=== PATIENT | male | born 1990 | race African-American/Black ===

== ENCOUNTER 2018-06-09 19:14 | Emergency (ER) | payer MEDICAID ==
[2018-06-09 19:19] VITALS: BP 110/82
--- NOTE | 2018-06-09 19:53 | EDPHY ---
H & P Time Seen by Provider: 06/09/18 19:27 HPI/ROS: CHIEF COMPLAINT: Depression and suicidal ideation HISTORY OF PRESENT ILLNESS: Patient is a 27-year-old male well known to this emergency room with history of anxiety and depression and chronic suicidal ideation. He reports persistent suicidal ideation without plan. States he does not want hurt himself and actually states that he does feel safe going home. When asked what he needs help with he states he needs a place to sleep and live and needs a good job. Denies any drug or alcohol use other than marijuana. Denies any hallucinations. REVIEW OF SYSTEMS: Constitutional: No fever, no chills. Eyes: No discharge. ENT: No sore throat. Cardiovascular: No chest pain, no palpitations. Respiratory: No cough, no shortness of breath. Gastrointestinal: No abdominal pain, no vomiting. Genitourinary: No hematuria. Musculoskeletal: No back pain. Skin: No rashes. Neurological: No headache. Past Medical/Surgical History: CHIEF COMPLAINT: [ ] HISTORY OF PRESENT ILLNESS: [ ] REVIEW OF SYSTEMS: Constitutional: No fever, no chills. Eyes: No discharge. ENT: No sore throat. Cardiovascular: No chest pain, no palpitations. Respiratory: No cough, no shortness of breath. Gastrointestinal: No abdominal pain, no vomiting. Genitourinary: No hematuria. Musculoskeletal: No back pain. Skin: No rashes. Neurological: No headache. Smoking Status: Current every day smoker Physical Exam: General Appearance: Alert and no distress. Eyes: Pupils equal and round no injection. Respiratory: Chest is nontender, lungs are clear to auscultation. Cardiac: regular rate and rhythm. Gastrointestinal: Abdomen is soft and nontender, no masses, bowel sounds normal. Musculoskeletal: Neck is supple and nontender. Extremities have full range of motion and are nontender. Skin: No rashes or lesions. Constitutional: Initial Vital Signs Temperature (C) 36.7 C 06/09/18 19:17 Heart Rate 114 H 06/09/18 19:17 Respiratory Rate 18 06/09/18 19:17 Blood Pressure 110/82 H 06/09/18 19:17 O2 Sat (%) 94 06/09/18 19:17 O2 Delivery Mode Room Air Allergies/Adverse Reactions: haloperidol [From Haldol] Allergy (Verified 09/06/18 19:17) risperidone Allergy (Verified 06/09/18 19:17) trazodone Allergy (Verified 06/09/18 19:17) ziprasidone [From Geodon] Allergy (Verified 06/09/18 19:17) Medical Decision Making ED Course/Re-evaluation: 27-year-old male here with chronic depression and suicidal ideation. He is not actively suicidal and has no plan. He was not placed on a hold. I offered him psychiatric evaluation and he would like to have this done. Before being medically cleared he eloped without having been evaluated by mental health. - Data Points Laboratory Results: Laboratory Results 06/09/18 20:10 06/09/18 20:10 06/09/18 06/09/18 06/09/18 20:10 20:10 20:10 WBC 6.00 10^3/uL 10^3/uL (3.80-9.50) RBC 5.37 10^6/uL 10^6/uL (4.40-6.38) Hgb 15.1 g/dL g/dL (13.7-17.5) Hct 44.5 % % (40.0-51.0) MCV 82.9 fL fL (81.5-99.8) MCH 28.1 pg pg (27.9-34.1) MCHC 33.9 g/dL g/dL (32.4-36.7) RDW 14.6 % % (11.5-15.2) Plt Count 269 10^3/uL 10^3/uL (150-400) MPV 10.1 fL fL (8.7-11.7) Neut % (Auto) 60.4 % % (39.3-74.2) Lymph % (Auto) 28.2 % % (15.0-45.0) [place] % (Auto) 9.7 % % (4.5-13.0) Eos % (Auto) 1.0 % % (0.6-7.6) Baso % (Auto) 0.5 % % (0.3-1.7) Nucleat RBC Rel Count 0.0 % % (0.0-0.2) Absolute Neuts (auto) 3.63 10^3/uL 10^3/uL (1.70-6.50) Absolute Lymphs (auto) 1.69 10^3/uL 10^3/uL (1.00-3.00) Absolute Monos (auto) 0.58 10^3/uL 10^3/uL (0.30-0.80) Absolute Eos (auto) 0.06 10^3/uL 10^3/uL (0.03-0.40) Absolute Basos (auto) 0.03 10^3/uL 10^3/uL (0.02-0.10) Absolute Nucleated RBC 0.00 10^3/uL 10^3/uL (0-0.01) Immature Gran % 0.2 % % (0.0-1.1) Immature Gran # 0.01 10^3/uL 10^3/uL (0.00-0.10) Sodium 140 mEq/L mEq/L (135-145) Potassium 4.1 mEq/L mEq/L (3.3-5.0) Chloride 104 mEq/L mEq/L (97-110) Carbon Dioxide 24 mEq/l mEq/l (22-31) Anion Gap 12 mEq/L mEq/L (8-16) BUN 12 mg/dL mg/dL (7-23) Creatinine 1.1 mg/dL mg/dL (0.7-1.3) Estimated GFR > 60 Glucose 116 mg/dL H mg/dL (70-100) Calcium 9.8 mg/dL mg/dL (8.5-10.4) Salicylates < 1.0 mg/dL L mg/dL (2.0-20.0) Urine Opiates Screen NEGATIVE (NEGATIVE) Acetaminophen < 10 mcg/mL L mcg/mL (10-30) Urine Barbiturates NEGATIVE (NEGATIVE) Ur Phencyclidine Scrn NEGATIVE (NEGATIVE) Ur Amphetamine Screen NEGATIVE (NEGATIVE) U Benzodiazepines Scrn NEGATIVE (NEGATIVE) Urine Cocaine Screen NEGATIVE (NEGATIVE) U Marijuana (THC) Screen NON-NEGATIVE H (NEGATIVE) Ethyl Alcohol < 10 mg/dL mg/dL (0-10) Departure - Departure Clinical Impression: Depression, Passive suicidal ideations Referrals: NONE *PRIMARY CARE P,. [Primary Care Provider] - As per Instructions
[2018-06-09 20:26] LABS: PLATELET COUNT 269 10^3/uL (150-400)
== END 2018-06-09 21:20 ==
LOC: EEVIPCON 19:14
DX: R45.851 Suicidal ideations (principal); F32.89 Other specified depressive episodes; F17.200 Nicotine dependence, unspecified, uncomplicated
CPT/HCPCS: 80305; G0480

== ENCOUNTER 2018-06-16 21:25 | Emergency (ER) | payer MEDICAID ==
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
[2018-06-16] MEDS ORDERED: NALOXONE HCL 0.4 MG/ML INJ IVP ONE (22:05)
[2018-06-16 22:36] LABS: PLATELET COUNT 247 10^3/uL (150-400)
[2018-06-17 00:18] VITALS: BP 126/71
== END 2018-06-17 07:56 | disposition left against medical advice (07) ==
DX: F32.9 Major depressive disorder, single episode, unspecified (principal); F41.9 Anxiety disorder, unspecified; Z87.891 Personal history of nicotine dependence
CPT/HCPCS: 96374; G0480; J2310

== ENCOUNTER 2018-06-21 20:10 | Emergency (ER) | payer OTHER, MEDICAID ==
[2018-06-21 20:15] VITALS: BP 117/80
--- NOTE | 2018-06-21 21:14 | EDPHY ---
H & P Time Seen by Provider: 06/21/18 20:17 HPI/ROS: HPI Depression, anxiety. 27-year-old male on foot. This patient is currently homeless. Our emergency department is very familiar with him. I have seen him twice myself recently. He has been on an M1 hold in the past. His last 2 visits he has left against medical advice. The last visit that I managed him he became violent with staff and left the emergency department. Prior to this he has left the emergency department before being evaluated by Behavioral Health after his blood it been drawn. He presents the emergency department on foot with complaint of depression and feeling anxious. He denies being suicidal. ROS: Constitutional: No fever, no chills. No weakness. Eyes: No discharge. No changes in vision. ENT: No sore throat. No nasal congestion or rhinorrhea. Respiratory: No cough. No shortness of breath. Cardiac: No chest pain, no palpitations. Gastrointestinal: No abdominal pain, no vomiting, no diarrhea. Genitourinary: No hematuria. No dysuria or increased frequency with urination. Musculoskeletal: No back pain. No neck pain. No myalgias or arthralgias. Skin: No rashes. Neurological: No headache. No focal weakness or altered sensation. Past medical history: Depression, anxiety. Social history: Denies smoking. No alcohol. Denies IV drugs and street drugs. Here by himself. Physical Exam: General Appearance: Alert, no distress. Very large man. This patient is responding to questions appropriately and in full sentences. This patient appears well-hydrated and well-nourished. Eyes: Pupils equal and round no pallor or injection. No lid edema, erythema or injection. Respiratory: There are no retractions, lungs are clear to auscultation with good air movement bilaterally. Cardiovascular: Regular rate and rhythm. No murmur. Gastrointestinal: Abdomen is soft and nontender, no masses, bowel sounds normal. No focal tenderness at McBurney's point. No Caraballo sign. Neurological: Motor sensory function is grossly intact. Cranial nerves are normal. Gait is normal. Skin: Warm and dry, no rashes. Musculoskeletal: Neck is supple and nontender. Extremities are symmetrical. All joints range without pain or impingement. Psychiatric: No agitation. No depression. Database: EKG: Imaging: Procedures: Emergency department course: Triage vital signs reviewed and are normal. The patient is not suicidal. He is a [facility] client. He does not meet criteria at this time for an M1 hold. I also do not feel he requires behavioral health evaluation at this time. He will be discharged. He has been instructed to follow-up with [facility] through their clinic tomorrow for re-evaluation. He is in agreement with this plan. Return to emergency department precautions were reviewed with him. All of his questions were answered. He was discharged from the emergency department in good condition. Differential Diagnosis: The differential diagnosis on this patient includes but is not limited to situational depression, anxiety. Acute psychosis, suicidal ideation unlikely. This represents a partial list of diagnoses considered. These considerations are based on history, physical exam, past history, reassessment and diagnostic testing. Smoking Status: Former smoker Constitutional: Initial Vital Signs Temperature (C) 37.0 C 06/21/18 20:13 Heart Rate 94 06/21/18 20:13 Respiratory Rate 16 06/21/18 20:13 Blood Pressure 117/80 06/21/18 20:13 O2 Sat (%) 94 06/21/18 20:13 O2 Delivery Mode Room Air Allergies/Adverse Reactions: haloperidol [From Haldol] Allergy (Verified 06/21/18 20:15) risperidone Allergy (Verified 06/21/18 20:15) trazodone Allergy (Verified 06/21/18 20:15) ziprasidone [From Geodon] Allergy (Verified 06/21/18 20:15) Home Medications: Medication Instructions Recorded NK [No Known Home Meds] 06/16/18 Departure - Departure Disposition: Home, Routine, Self-Care Clinical Impression: Depression, Anxiety Condition: Good Instructions: Depression (ED) Additional Instructions: Read and follow provided instructions. Follow-up with [facility] tomorrow at their clinic for re- evaluation. Take your medication as prescribed. Return to the emergency department for worsening symptoms or other serious concerns. Referrals: [facility] [Outside] - As per Instructions
== END 2018-06-21 21:32 | disposition home or self-care (01) ==
DX: F41.9 Anxiety disorder, unspecified (principal); F32.9 Major depressive disorder, single episode, unspecified; Z59.0 Homelessness

== ENCOUNTER 2018-06-22 07:25 | Emergency (ER) | payer MEDICAID ==
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
[2018-06-22 09:18] VITALS: BP 105/59
== END 2018-06-22 09:03 | disposition home or self-care (01) ==
LOC: CED 07:25
DX: F33.1 Major depressive disorder, recurrent, moderate (principal); F41.9 Anxiety disorder, unspecified; F17.200 Nicotine dependence, unspecified, uncomplicated; Z59.0 Homelessness

== ENCOUNTER 2018-06-22 23:26 | Emergency (ER) | payer MEDICAID ==
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
[2018-06-23 01:39] VITALS: BP 126/84
== END 2018-06-23 01:42 | disposition home or self-care (01) ==
LOC: CED 23:26
DX: F32.9 Major depressive disorder, single episode, unspecified (principal); Z59.0 Homelessness

== ENCOUNTER 2018-06-25 19:36 | Emergency (ER) | payer MEDICAID ==
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
== END 2018-06-25 19:46 | disposition home or self-care (01) ==
LOC: CED 19:36
DX: Z76.5 Malingerer [conscious simulation] (principal); Z59.0 Homelessness

== ENCOUNTER 2018-07-27 21:27 | Emergency (ER) | payer MEDICAID, OTHER ==
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
[2018-07-27 22:08] LABS: PLATELET COUNT 258 10^3/uL (150-400)
[2018-07-27 23:25] VITALS: BP 132/98
--- NOTE | 2018-07-28 08:32 | ASMTTLCEVL ---
TLC Evaluation - Basic Information Evaluation Start Date and 07/28/2018 06:20 AM Time Hospital Status Answers: M1 Hold 72-hr M1 Hold Start Date 07/27/2018 09:48 PM and Time Patient statement Notes: I dont like my life. Narrative Notes: Pt is a 27 yo, single, homeless, unemployed male with unknown past psychiatric diagnosis history, self-presented to [facility] ED last night initially on a voluntary basis. He reported feeling depressed about his life and having suicidal ideation. Pt was placed on M1 hold by ED provider which simply noted: Patient here with suicidal ideation. Depression. History Bipolar. Upon medical clearance, MH interview commenced the following morning. ED staff reported that pt had been on his cell phone at times throughout the night, otherwise was sleeping. Pt appeared in good physical condition. He voiced no physical complaints. It was noted that pt had tattoos on both of his eyelids. Pt reported he has been homeless for the past 10 years. He stated he took a bus from the [place], [place] area and arrived in [place] a couple of weeks ago ([facility] records show that pt has been seen in the ED s 6 times since 06/09/18). On 06/09/18, MH manager nc noted that pt presented to ED voluntarily and he stated he went to [facility] on 06/08/18 but said he was told they couldnt get him snf or help him. He then became uncooperative to the interview process, responding with I dont know or I dont remember. Pt left ED while manager nc was consulting with ED provider. On 06/17/18 ED visit, it was noted that pt was snf seeking, became threatening to 3 security staff, denied he was suicidal and demanded to leave. The M1 hold was vacated and pt was escorted off [facility] premises. On 06/21/18 ED visit, pt again presented on a voluntary basis with c/o depression and anxiety, no suicidality and was discharged. On 06/21/18 ED, same presentation. On 06/23/18 ED visit, pt c/o feeling depressed because he doesnt want to be on the streets anymore. Records noted pt reported being excluded from [facility] for violent behavior and that pt wanted the ED to find him a place to stay. On 06/25/18 ED visit, it was again noted pt was snf seeking. Pt reported having just been released from [facility] yesterday after a 5 day stay. Pt reported that what precipitated that admission with a suicide attempt. Asked pt how he attempted suicide and pt stated I cut my wrist. Asked pt to show where he had made the cuts and pt showed his left forearm where it was observed pt had a few barely detectable superficial jennings on his forearm. Pt was not fully cooperative in providing historical background information, especially when asked if he had any legal history pt stated none here, but a lot of times in [place] theyre prejudiced in [place]. Pt would not provide information on what he had been incarcerated several times for. Diagnosis History Notes: Pt reported feelings of depression and anxiety my whole life. Prior suicide attempts Notes: As noted above, pt reported one prior suicide attempt in which he made a few superficial jennings on his left forearm about 6 days ago. Prior hospitalizations Notes: [facility] for 5 days and was released yesterday with recommendations to follow up with [facility]. Additionally, on 06/17/18 ED visit, it was noted that pt was snf seeking, became threatening to 3 security staff, denied he was suicidal and demanded to leave. Treatment Responses Notes: Pt reported feeling that "they didn't help me and [facility] can't help me." History of violence Notes: Pt was not fully cooperative in providing background information, however, it was noted that on 06/23/18 ED visit that pt reported being excluded from [facility] for violent behavior and that pt wanted the ED to find him a place to stay. Therapist: None. Psychiatrist: None. Medications (name, dosage, route, freq uency) Notes: None. Allergies/Reaction Notes: Pt reported having allergy to Geodon and Haldol rash. Sleep Notes: WNL. Appetite Notes: WNL. Medical/Surgical history Notes: Noncontributory. Pt denied having any history of health issues or surgeries. Substance use history (frequency, intensity, his tory, duration) Notes: Pt reported he does not drink alcohol. He reported he first tried marijuana at age 12 and uses daily, 1-3 blunts daily, with last use being last night. He denied any other illicit substance use history. BAL was zero. UDS results positive for marijuana. Family composition Notes: Pt reported not knowing anything about his biological parents and was placed in foster care until age 16 when he ran away. Need for family Answers: No participation in patient's care Family psychiatric/substance abuse history Notes: Pt reported not knowing anything about his biological parents and was placed in foster care until age 16 when he ran away. Developmental history Notes: Pt grew up in the [place] area. Pt reported not knowing anything about his biological parents and was placed in foster care until age 16 when he ran away. He denied any past history of TBIs, LOC or concussions. Pt declined to provide any information regarding a history of childhood abuse. Abuse concerns Answers: None Marital status/children Notes: Pt is single, never , no dependents. Living situation Notes: Pt reported he has been homeless for the past 10 years. He reported that somebody in [place], [place] suggested he come to [place] to get help, so he arrived in [place] in early June via bus. He has a large black duffle back containing his belongings. Sexual history/orientation Notes: Not active. Heterosexual. Peer support/family strengths Notes: None identified. Pt is new to [facility] and homeless. Education level/history Notes: Pt reported he attended some classes at [employer]. He added that he rarely attended classes and had no specific area of study. 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 Pt is unemployed. Notes: None. Legal Notes: Pt was not fully cooperative in providing historical background information, especially when asked if he had any legal history pt stated none here, but a lot of times in [place] theyre prejudiced in [place]. Pt would not provide information on what he had been incarcerated several times for. Anabaptist/Spiritual Notes: Pt was not fully cooperative in providing historical background information, especially when asked if he had any legal history pt stated none here, but a lot of times in [place] theyre prejudiced in [place]. Pt would not provide information on what he had been incarcerated several times for. Leisure Notes: None identified. Collateral Notes: Prior [facility] records. Patient's strengths Answers: Athletic (Please select at least TWO strengths): Willingness TLC Evaluation - Mental Status Exam Appearance: Answers: Clean Eye Contact: Answers: Intermittent Staring Mood: Answers: Irritable Affect: Answers: Congruent w/ Mood Guarded Irritable Sad Behavior: Answers: Uncooperative Manipulative Menacing Passive Resistive to Care Speech: Answers: Relevant Logical Clear Coherent Selectively Mute Thought Process: Answers: Organized Oriented Alert Goal Oriented Intact Insight: Answers: Poor Judgement: Answers: Fair Depression Answers: Sad Mood Signs/Symptoms: Hallucinations: Answers: None Current Stage of Change Answers: Precontemplation Pt reported to have Answers: Yes suicidal/self-injuring ideation/behavior? Pt reported to be making Answers: No suicidal/self-injuring threats? Pt reported to have Answers: No aggression/assault ideation/behavior? Pt reported to be making Answers: No aggression/assault threats? Pt exhibits inability to Answers: No care for self/grave disability? Ideation/behavior is Answers: Yes chronic? Patient has a specific Answers: No plan? Pt has access to means to Answers: No execute the plan? Ideation involves Answers: No serious/lethal intent? Ideation has Answers: No delusional/hallucinatory content? History of Answers: Yes suicidal/self-injuring ideation, behavior, or threats? History of Answers: Yes aggressive/assaultive ideation, behavior, or threats? History of serious Answers: Yes physical harm to self/others while in treatment setting? [facility] Evaluation - Suicide/Homicide Risk Suicide Risk Factors: Answers: Cluster "B" D/O or Traits Financial Difficulties Flat Affect Inadequate Social Support Lack of Anabaptist Support Lack of Social Support Lack/Loss of Employment Legal Difficulties Single Unstable Living Situation Homicide/violence risk Answers: Antisocial Personality DO factors: Previous Hx of Violence Threats Towards Others Violence Towards Others Current Suicidal Answers: Yes Ideation? Current Suicidal Ideation Answers: No in the Past 48 Hours? Current Suicidal Ideation Answers: Yes in the Past Month? Current Suicidal Answers: No Ideation, Worst Ever? Suicide Internal Answers: Absence of Psychosis Protective Factors: Suicide External Answers: None Protective Factors: Ranking of patient's Answers: Low suicidal risk: Ranking of patient's Answers: Low homicidal risk: TLC Evaluation - Wrap-up BDI Total Score: 36 BDI Question #2 Score: 2 BDI Question #9 Score: 2 AXIS I Diagnosis (include DSM-V and ICD-10 codes), must also be entered in [employer], which is the source of truth. Notes: Malingering V65.2 (Z76.5) Cannabis Use Disorder, severe 304.30 (F12.20) Persistent Depressive Disorder (Dysthymia) 300.4 (F34.1) In consultation with [facility] ED physician, Mario Ludwig, Dr. MacDade concurred that pt does not appear to meet 27-65 criteria requiring psychiatric hospitalization as pt does not appear to be an imminent risk of harm to self/others/gravely disabled due to a mental illness condition. Dr. Ludwig provided verbal order read back vacating M1 hold at 0700 hrs. Pt was given local hotline information and [facility] brochure After an Attempt and encouraged to follow up with [facility]. Evaluation End Date and 07/28/2018 08:30 AM Time (HH:PATRICIA): Date Signed: 07/28/2018 08:32 AM Electronically Signed By:Jerome Mcbride
--- NOTE | 2018-07-28 08:33 | ASMTTCLDSP ---
TLC Discharge Disposition Disposition: Answers: Discharge If Answers: Yes DISCHARGED: Patient/family given suicide hotline info & [facility] brochure? Disposition Notes: Notes: In consultation with [facility] ED physician, Mario Ludwig, Dr. Ludwig concurred that pt does not appear to meet 27-65 criteria requiring psychiatric hospitalization as pt does not appear to be an imminent risk of harm to self/others/gravely disabled due to a mental illness condition. Dr. Ludwig provided verbal order read back vacating M1 hold at 0700 hrs. Pt was given local hotline information and [facility] brochure After an Attempt and encouraged to follow up with [facility]. Discharge Concerns/Recommendations: Notes: In consultation with [facility] ED physician, Mario Ludwig, Dr. Ludwig concurred that pt does not appear to meet 27-65 criteria requiring psychiatric hospitalization as pt does not appear to be an imminent risk of harm to self/others/gravely disabled due to a mental illness condition. Dr. Ludwig provided verbal order read back vacating M1 hold at 0700 hrs. Pt was given local Apartment Listline information and [facility] brochure After an Attempt and encouraged to follow up with [facility]. Was patient given the Answers: Not applicable Inpatient Behavioral Health Prohibited Belongings List while in the ED? Psychiatrist vacating M1 Mario Ludwig MD Hold: Date and time M1 hold 07/28/2018 07:00 AM vacated (time format is hh:mm): Type of Hold: Answers: M1/72-hour Hold Hold initiated by: Answers: ED Physician Date Signed: 07/28/2018 08:33 AM Electronically Signed By:Jerome Mcbride
== END 2018-07-28 07:14 | disposition home or self-care (01) ==
DX: F32.9 Major depressive disorder, single episode, unspecified (principal); Z59.0 Homelessness
CPT/HCPCS: 80305; G0480